=== PATIENT | male | born 1960 | race Caucasian/White ===

== ENCOUNTER 2023-08-11 09:30 | Emergency (ER) | payer OTHER ==
[~2023-08-11] VITALS: Ht 167.6 cm; Wt 74.5 kg
[2023-08-11] MEDS ORDERED: NORVASC5 MG PO ×2 (09:51→10:17)
[2023-08-11] MEDS ORDERED: LEXAPRO20 MG PO ×2 (09:51→10:17)
[2023-08-11 10:21] VITALS: BP 168/97
== END 2023-08-11 10:27 | disposition home or self-care (01) ==
LOC: ED 09:30
DX: K40.90 Unilateral inguinal hernia, without obstruction or gangrene, not specified as recurrent (principal); Z79.899 Other long term (current) drug therapy; Z88.8 Allergy status to other drugs, medicaments and biological substances
CPT/HCPCS: 99283

== ENCOUNTER 2025-03-10 11:59 | Emergency (ER) | payer OTHER ==
[~2025-03-10] VITALS: Ht 167.6 cm; Wt 72.5 kg
[~2025-03-10 11:59] MED LIST: LEXAPRO20 MG PO; NORVASC5 MG PO
[2025-03-10] MEDS ORDERED: BACTRIM DS TAB1 EACH PO (15:41)
[2025-03-10] MEDS ORDERED: CEPHALEXIN500 M1 PO (15:41)
[2025-03-10 15:49] VITALS: BP 117/73
== END 2025-03-10 15:47 | disposition home or self-care (01) ==
LOC: ED 11:59
DX: L02.222 Furuncle of back [any part, except buttock and flank] (principal); L03.114 Cellulitis of left upper limb; L03.113 Cellulitis of right upper limb; I10 Essential (primary) hypertension; Z88.8 Allergy status to other drugs, medicaments and biological substances; Z79.899 Other long term (current) drug therapy
CPT/HCPCS: 99283